=== PATIENT | female | born 1990 | race Caucasian/White ===

== ENCOUNTER → 2017-02-27 | Outpatient (CLI) | payer OTHER ==
--- NOTE | 2017-02-27 10:39 | REP ---
OB ULTRASOUND: Real-time sonographic evaluation of the gravid uterus performed utilized transabdominal technique. There is a single living intrauterine gestation with estimated gestational age of 12 weeks 3 days based on a crown-rump length of 60 mm, EDC 09/08/2017. Cervix is closed and measures 4.3 cm in length. heart rate 162 beats per minute. There is no subchorionic hemorrhage. Placenta is anterior. No maternal adnexal region abnormality is seen. Signed by John Vargas MD 02/27/2017 02:36 P
== END ==
LOC: M RAD 09:34
PROVIDERS: ATTEND Nurse Practitioner Adult Health
DX: Z34.80 Encounter for supervision of other normal pregnancy, unspecified trimester (principal)

== ENCOUNTER → 2017-06-04 | Outpatient (CLI) | payer OTHER | LOC: M RAD 09:16 | DX: Z34.82 Encounter for supervision of other normal pregnancy, second trimester (principal) | CPT/HCPCS: 76811 ==

== ENCOUNTER → 2018-07-02 | Outpatient (CLI) | payer MEDICAID | LOC: M OUTALCOH 10:07 | PROVIDERS: ATTEND Psychiatry & Neurology Psychiatry | DX: Z13.9 Encounter for screening, unspecified (principal) ==

== ENCOUNTER 2018-07-30 07:58 | Outpatient (RCR) | payer MEDICAID | END 2018-08-02 | LOC: M OUTALCOH 07:58 | PROVIDERS: ATTEND Psychiatry & Neurology Psychiatry | DX: F12.20 Cannabis dependence, uncomplicated (principal); F17.200 Nicotine dependence, unspecified, uncomplicated ==

== ENCOUNTER 2018-08-07 12:51 | Outpatient (RCR) | payer MEDICAID | END 2018-09-01 | LOC: M OUTALCOH 12:51 | PROVIDERS: ATTEND Psychiatry & Neurology Psychiatry | DX: F12.20 Cannabis dependence, uncomplicated (principal); F17.200 Nicotine dependence, unspecified, uncomplicated ==

== ENCOUNTER 2019-01-16 19:40 | Emergency (ER) | payer MEDICAID, OTHER ==
[~2019-01-16] VITALS: Ht 154.9 cm; Wt 122.7 kg
[2019-01-16] MEDS ORDERED: IBUPROFEN 600 MG TAB PO ONE (20:30)
[2019-01-16] MEDS ORDERED: BUPR50TA (20:47)
[2019-01-16] MEDS ORDERED: FLUO20CA19 (20:47)
[2019-01-16 21:44] VITALS: BP 137/73
--- NOTE | 2019-01-17 09:22 | REP ---
REASON: Pain after trauma. PRIORS: None. FINDINGS: No acute fracture or destructive osseous lesion. The mortise is intact. Electronically Signed by Hugo Arauz DO 01/17/2019 09:25 A
--- NOTE | 2019-01-17 09:31 | REP ---
REASON: Pain after trauma. PRIORS: None. FINDINGS: The joint spaces are symmetric and relatively well maintained. There is no evidence of acute fracture or destructive osseous lesion. IMPRESSION: Negative. Electronically Signed by Hugo Arauz DO 01/17/2019 09:46 A
== END 2019-01-16 21:46 | disposition home or self-care (01) ==
LOC: M ED 19:40
DX: S93.402A Sprain of unspecified ligament of left ankle, initial encounter (principal); W10.9XXA Fall (on) (from) unspecified stairs and steps, initial encounter; Y92.099 Unspecified place in other non-institutional residence as the place of occurrence of the external cause; Y93.9 Activity, unspecified; Y99.9 Unspecified external cause status; E28.2 Polycystic ovarian syndrome; Z79.899 Other long term (current) drug therapy; Z88.8 Allergy status to other drugs, medicaments and biological substances

== ENCOUNTER 2019-01-30 10:41 | Emergency (ER) | payer OTHER ==
[~2019-01-30] VITALS: Ht 154.9 cm; Wt 122.7 kg
[~2019-01-30 10:41] MED LIST: BUPR50TA; FLUO20CA19
[2019-01-30] MEDS ORDERED: HYDR-3363 (11:00)
[2019-01-30] MEDS ORDERED: AZIT-12 PO (11:47)
[2019-01-30] MEDS ORDERED: PROAAER10 INH (11:49)
[2019-01-30 11:59] VITALS: BP 116/67
[2019-02-04 10:07] LABS: BORDETELLA PARAPERTUSSIS PCR Negative (Negative); BORDETELLA PERTUSSIS BY PCR Negative (Negative)
== END 2019-01-30 12:03 | disposition home or self-care (01) ==
LOC: M ED 10:41
DX: J02.9 Acute pharyngitis, unspecified (principal); R05 Cough; Z79.899 Other long term (current) drug therapy; Z72.0 Tobacco use; Z88.8 Allergy status to other drugs, medicaments and biological substances

== ENCOUNTER → 2019-05-28 | Outpatient (CLI) | payer MEDICAID ==
[~2019-05-28] MED LIST changes: +AZIT-12 PO; +HYDR-3363; +PROAAER10 INH
== END ==
LOC: M OUTALCOH 08:27
PROVIDERS: ATTEND Psychiatry & Neurology Addiction Medicine
DX: Z13.39 Encounter for screening examination for other mental health and behavioral disorders (principal); F12.10 Cannabis abuse, uncomplicated

== ENCOUNTER 2019-06-30 16:00 | Outpatient (RCR) | payer MEDICAID ==
[~2019-06-30 16:00] MED LIST changes: -FLUO20CA19; +FLUO20CA22
== END 2019-07-03 ==
LOC: M OUTALCOH 16:00
PROVIDERS: ATTEND Psychiatry & Neurology Addiction Medicine
DX: F17.200 Nicotine dependence, unspecified, uncomplicated (principal); F12.10 Cannabis abuse, uncomplicated; F14.10 Cocaine abuse, uncomplicated; F10.10 Alcohol abuse, uncomplicated

== ENCOUNTER 2019-07-28 16:00 | Outpatient (RCR) | payer MEDICAID | END 2019-08-03 | LOC: M OUTALCOH 16:00 | PROVIDERS: ATTEND Psychiatry & Neurology Addiction Medicine | DX: F10.10 Alcohol abuse, uncomplicated (principal); F17.200 Nicotine dependence, unspecified, uncomplicated; F12.10 Cannabis abuse, uncomplicated; F14.10 Cocaine abuse, uncomplicated ==

== ENCOUNTER 2019-09-01 13:52 | Outpatient (RCR) | payer MEDICAID | END 2019-09-02 | LOC: M OUTALCOH 13:52 | PROVIDERS: ATTEND Psychiatry & Neurology Addiction Medicine | DX: F12.10 Cannabis abuse, uncomplicated (principal); F14.10 Cocaine abuse, uncomplicated; F10.10 Alcohol abuse, uncomplicated; F17.200 Nicotine dependence, unspecified, uncomplicated ==

== ENCOUNTER 2019-09-08 13:00 | Outpatient (RCR) | payer MEDICAID | END 2019-10-03 | LOC: M OUTALCOH 13:00 | PROVIDERS: ATTEND Psychiatry & Neurology Addiction Medicine | DX: F12.10 Cannabis abuse, uncomplicated (principal); F14.10 Cocaine abuse, uncomplicated; F10.10 Alcohol abuse, uncomplicated; F17.200 Nicotine dependence, unspecified, uncomplicated ==

== ENCOUNTER 2021-10-30 08:51 | Emergency (ER) | payer MEDICAID, OTHER ==
[~2021-10-30] VITALS: Ht 154.9 cm; Wt 118.1 kg
[2021-10-30 08:51] VITALS: BP 127/78
[~2021-10-30 08:51] MED LIST changes: +BUPR-69; -BUPR50TA
[2021-10-30] MEDS ORDERED: PRED20TA PO (11:22)
== END 2021-10-30 11:50 | disposition home or self-care (01) ==
LOC: M ED 08:51
DX: M25.512 Pain in left shoulder (principal); E66.9 Obesity, unspecified; F17.200 Nicotine dependence, unspecified, uncomplicated; Z88.8 Allergy status to other drugs, medicaments and biological substances

== ENCOUNTER → 2023-04-04 | Outpatient (CLI) | payer OTHER ==
[~2023-04-04] MED LIST changes: +PRED20TA PO
[2023-04-04 12:33] LABS: ALBUMIN 3.7 G/DL (3.2-5.2); ALKALINE PHOSPHATASE 62 U/L (46-116); ALT/SGPT 38 U/L (7.0-40); AST/SGOT 20 U/L (<34); BILIRUBIN,TOTAL 0.5 MG/DL (0.3-1.2); BLOOD UREA NITROGEN 9 MG/DL (9-23); CARBON DIOXIDE LEVEL 28 MMOL/L (20-31); CHLORIDE LEVEL 106 MMOL/L (98-107); CHOLESTEROL LEVEL 140 MG/DL (<200); CHOLESTEROL RISK RATIO 4.04 (<5); CREATININE FOR GFR 0.56 MG/DL (0.55-1.30); GLOMERULAR FILTRATION RATE > 60.0 (>60); GLUCOSE, FASTING 106 MG/DL (60-100); HDL CHOLESTEROL 34.6 MG/DL (>40); LDL CHOLESTEROL 87.4 MG/DL (<100); NON-HDL-C 105.4 MG/DL; POTASSIUM SERUM 4.6 MMOL/L (3.5-5.1); SODIUM LEVEL 142 MMOL/L (136-145); TRIGLYCERIDES LEVEL 90 MG/DL (<150)
[2023-04-04 12:34] LABS: HEMOGLOBIN A1c 5.1 % (4.0-6.0)
[2023-04-04 12:35] LABS: TOTAL 25(OH) VITAMIN D 10.1 NG/ML (20.0-100.0)
[2023-04-04 13:08] LABS: HEPATITIS C VIRUS ABY INDEX 0.07 INDEX (<0.8)
== END ==
LOC: M PLALAB 09:25
PROVIDERS: ATTEND Family Medicine
DX: Z00.00 Encounter for general adult medical examination without abnormal findings (principal); Z68.43 Body mass index [BMI] 50.0-59.9, adult; E66.01 Morbid (severe) obesity due to excess calories; Z71.6 Tobacco abuse counseling

== ENCOUNTER → 2023-06-18 | Outpatient (REF) | payer OTHER, MEDICAID ==
[2023-06-18 14:28] LABS: RSV AMPLIFICATION NEGATIVE (NEGATIVE)
== END ==
LOC: M SFHCPLAZ 12:32 → M SFHCWAGY 12:32
PROVIDERS: ATTEND Nurse Practitioner Family
DX: J02.9 Acute pharyngitis, unspecified (principal)

== ENCOUNTER → 2024-06-21 | Outpatient (CLI) | payer OTHER ==
[~2024-06-21] MED LIST changes: +FLUO-365; -FLUO20CA22
[2024-06-21 13:42] LABS: ALBUMIN 3.7 G/DL (3.2-5.2); ALKALINE PHOSPHATASE 71 U/L (35-104); ALT/SGPT 53 U/L (7.0-40); AST/SGOT 27 U/L (<34); BILIRUBIN,TOTAL 0.6 MG/DL (0.3-1.2); BLOOD UREA NITROGEN 8 MG/DL (9-23); CALCIUM LEVEL 9.3 MG/DL (8.5-10.1); CARBON DIOXIDE LEVEL 28 MMOL/L (20-31); CHLORIDE LEVEL 105 MMOL/L (98-107); CHOLESTEROL LEVEL 153 MG/DL (<200); CHOLESTEROL RISK RATIO 4.15 (<5); CREATININE FOR GFR 0.52 MG/DL (0.55-1.30); GLOMERULAR FILTRATION RATE > 60.0 (>60); GLUCOSE, FASTING 107 MG/DL (60-100); HDL CHOLESTEROL 36.8 MG/DL (>40); LDL CHOLESTEROL 79.8 MG/DL (<100); NON-HDL-C 116.2 MG/DL; POTASSIUM SERUM 4.1 MMOL/L (3.5-5.1); SODIUM LEVEL 139 MMOL/L (136-145); TOTAL 25(OH) VITAMIN D 8.8 NG/ML (20.0-100.0); TOTAL PROTEIN 7.2 G/DL (5.7-8.2); TRIGLYCERIDES LEVEL 182 MG/DL (<150)
[2024-06-21 14:06] LABS: HEMOGLOBIN A1c 5.4 % (4.0-6.0)
== END ==
LOC: M PLALAB 10:50
PROVIDERS: ATTEND Family Medicine
DX: Z00.00 Encounter for general adult medical examination without abnormal findings (principal); Z68.43 Body mass index [BMI] 50.0-59.9, adult; E66.01 Morbid (severe) obesity due to excess calories; Z71.6 Tobacco abuse counseling